=== PATIENT | female | born 1970 | race Asian ===

== ENCOUNTER 2023-05-24 07:35 | Day surgery (SDC) | payer OTHER ==
[~2023-05-24] VITALS: Ht 144.8 cm; Wt 47.6 kg
[2023-05-24] MEDS ORDERED: fentaNYL citrate 0.05 MG/ML VIAL ONE (09:57)
[2023-05-24] MEDS ORDERED: LIDOCAINE 2% 100 MG/5 ML UJET TP ONE (09:57)
[2023-05-24] MEDS ORDERED: SIMETHICONE 40 MG/0.6 ML ONE ×2 (10:27)
[2023-05-24] MEDS ORDERED: fentaNYL citrate 0.05 MG/ML VIAL IVP ONE (11:40)
== END 2023-05-24 11:25 | disposition home or self-care (01) ==
LOC: MDS 07:35 → MMU 07:36 → MDS 11:25
PROVIDERS: ATTEND Internal Medicine Gastroenterology
DX: Z12.11 Encounter for screening for malignant neoplasm of colon (principal); K64.9 Unspecified hemorrhoids; Z90.710 Acquired absence of both cervix and uterus; Z79.899 Other long term (current) drug therapy
CPT/HCPCS: 45378; J3010